=== PATIENT | female | born 1995 | race Caucasian/White ===

== ENCOUNTER 2021-08-29 09:18 | Emergency (ER) | payer SELFPAY ==
[~2021-08-29] VITALS: Ht 157.5 cm; Wt 55.8 kg
[2021-08-29 09:58] LABS: *URINE HCG, QUAL NEG (NEGATIVE)
[2021-08-29] MEDS ORDERED: ONDANSETRON ODT 4 MG TAB.RAPDIS ONE (10:14)
[2021-08-29] MEDS ORDERED: IBUPROFEN 600 MG TABLET ONE (10:14)
[2021-08-29] MEDS ORDERED: IBUPROFEN 600 MG TABLET PO ONE (10:15)
[2021-08-29] MEDS ORDERED: ONDANSETRON ODT 4 MG TAB.RAPDIS SL ONE (10:15)
[2021-08-29] MEDS ORDERED: IBUP-1953 PO (10:43)
[2021-08-29] MEDS ORDERED: ONDA4TAB11 PO (10:44)
--- NOTE | 2021-08-29 11:15 | NUR ---
PT WAS EVALUATED BY DR WAGONER. PT WAS D/C'd TO HOME. D/C INSTRUCTIONS GIVEN TO THE PT BY DR WAGONER.
[2021-08-29 11:17] VITALS: BP 123/70
== END 2021-08-29 11:18 | disposition home or self-care (01) ==
LOC: ER 09:18
DX: S00.83XA Contusion of other part of head, initial encounter (principal); S60.212A Contusion of left wrist, initial encounter; S23.3XXA Sprain of ligaments of thoracic spine, initial encounter; S80.11XA Contusion of right lower leg, initial encounter; V49.60XA Unspecified car occupant injured in collision with unspecified motor vehicles in traffic accident, initial encounter; Y92.410 Unspecified street and highway as the place of occurrence of the external cause
CPT/HCPCS: 70450; 72072; 73090; 73590; 84703; A4663; Q0162